=== PATIENT | female | born 1965 | race Caucasian/White ===

== ENCOUNTER → 2018-06-01 | Outpatient (CLI) | payer OTHER | LOC: BMCIMAGING 10:56 | PROVIDERS: ATTEND Podiatrist Foot & Ankle Surgery | DX: M19.071 Primary osteoarthritis, right ankle and foot (principal); M19.072 Primary osteoarthritis, left ankle and foot; M21.41 Flat foot [pes planus] (acquired), right foot; M21.42 Flat foot [pes planus] (acquired), left foot; Z87.798 Personal history of other (corrected) congenital malformations ==

== ENCOUNTER → 2018-06-04 | Outpatient (CLI) | payer OTHER | LOC: FIMAGING 11:21 | PROVIDERS: ATTEND Orthopaedic Surgery | DX: M17.11 Unilateral primary osteoarthritis, right knee (principal); S83.011A Lateral subluxation of right patella, initial encounter ==

== ENCOUNTER 2018-07-10 09:51 | Inpatient (IN) | payer OTHER ==
--- NOTE | 2018-07-10 06:39 | PDIAF ---
- Diagnosis Diagnosis: right knee djd Code Status: Full Code - Medication Management Discharge Medications: electronically signed and located in the Home Medication List. - Orders Services needed: Home Care, Physical Therapy Home Care Face to Face: I certify that this patient was under my care and that I had the required [id number] encounter meeting the encounter requirements on the discharge day. My findings support the fact that the patient is homebound as defined in Home Care Face to Face Continued: CMS Chapter 7 Medicare Benefits Manual 30.1.1 , The condition of the patient is such that there exists a normal inability to leave home and consequently, leaving home would require a considerable and taxing effort. Diet Recommendation: no restrictions on diet Diet Texture: Regular Texture Diet Additional Instructions: TOTAL JOINT ARTHROPLASTY DISCHARGE INSTRUCTIONS 1. Your surgeon follows the [facility] protocol for reducing your risk of DVT (blood clots) following surgery. Medication will be ordered to prevent blood clots. A sudden increase in calf pain and/or swelling could indicate a blood clot in your leg. If this occurs, please call your surgeon or his/her human resources benefits assistant. An ultrasound of the leg may be necessary to diagnose a blood clot. If you have conditions that make you a higher risk for blood clots, your surgeon may use more aggressive ways to prevent them. Notify your surgeon if you think you are a high risk for blood clots. 2. Wear your white surgical stockings (LESVIA hose) for 2 weeks. This decreases your swelling and may help prevent blood clots. It is ok to remove LESVIA hose at night time to give your legs a break. 3. Swelling and bruising in the surgical leg is common. If you feel that it is excessive, please notify your surgeon. 4. Elevate your surgical leg with the ankle above the hip several times every day. Please keep the leg straight when you elevate by putting pillows under your foot. Do not put pillows under your knee. This will make being able to fully straighten more difficult. This is uncomfortable, but try to do it as much as possible. 5. For total knee replacements use compressive wrap on your knee for 3-5 days after surgery, then you can discontinue it. 6. Use a walker or crutches for 1-2 weeks. Progress your weight-bearing as tolerated. You may start to use a cane when you feel stable and safe. 7. You will receive physical therapy instructions in the hospital. Continue those exercises at home. There are additional exercises in the total joint booklet you were given before surgery. Outpatient physical therapy will begin 7- 10 days after surgery. Please schedule this in advance. 8. Use ice on your knee at least 3-5 times every day for 30 minutes. This helps reduce pain and swelling. Also use it at night before falling asleep. 9. Leave your surgical dressing in place for 2 weeks. Your dressing is water resistant, but not waterproof. Cover it with Saran Wrap or Dbjqi-c-Unsd before showering. You may shower as soon as you feel safe entering a shower. If you notice bleeding from your incision 2 or 3 days after surgery, please notify your surgeon. 10. Due to narcotics, decreased activity and altered diet, most patients experience constipation after surgery. Use xzvb-vok-zeadbib stool softeners while you are on narcotics. 11. You may drive a car when you are comfortable bearing weight, have good muscular control of your leg and are off narcotics. This usually occurs 2-4 weeks after surgery, depending on which leg was operated on. 12. If there are questions not addressed here, please refer the [facility] book given for more information. If you still have questions, please contact your surgeon s office. 13. If you have a life-threatening emergency, please call 911 and go to the emergency room immediately. For non-life threatening emergencies, please call your physicians office for advice before going to the emergency room. - Follow Up Care Current Providers and Referrals: Geoffrey Martinez MD [Primary Care Provider] - Uriel Barrtet MD [Medical Doctor] -
--- NOTE | 2018-07-10 06:39 | PDHPUP ---
History & Physical Update H&P update statement: This history and physical update is based on an assessment of the patient which was completed after admission or registration (within 24 hours), but prior to the surgery/procedure. H&P update: no change in patient's condition since H&P completed
[~2018-07-10 09:51] MED LIST: ROPIVACAINE 0.2% 80 MG, EPINEPHrine 0.2 MG, KETOROLAC TROMETHAMINE 30 MG, morphINE 10 M... IU ONE; TRANEXAMIC ACID 1,000 MG in NS 100 ML IV ONE
[2018-07-10] MEDS ORDERED: ACETAMINOPHEN 325 MG TAB PO ONE (10:16)
[2018-07-10] MEDS ORDERED: FAMOTIDINE 20 MG TAB PO ONE (10:16)
[2018-07-10] MEDS ORDERED: ceFAZolin 2 GM/DEXTROSE 100 ML IV ONE (10:16)
[2018-07-10] MEDS ORDERED: LR 1,000 ML IV ONE (10:18)
[2018-07-10] MEDS ORDERED: ceFAZolin 1 GM/5 ML SYR ONE (10:49)
[2018-07-10] MEDS ORDERED: CALCIUM CHLORIDE 1 GM/10 ML INJ ONE (10:49)
[2018-07-10] MEDS ORDERED: THROMBIN (BOVINE) 5,000 UNIT VIAL TP ONE (10:49)
[2018-07-10] MEDS ORDERED: LIDOCAINE 1% 2 ML INJ ID PRN (11:04)
[2018-07-10] MEDS ORDERED: LIDOCAINE 1% 2 ML INJ ONE (11:06)
--- NOTE | 2018-07-10 11:17 | PDANEPAE ---
ANE History of Present Illness Knee OA ANE Past Medical History - Cardiovascular History Hx Hypertension: No Hx Arrhythmias: No Hx Chest Pain: No Hx Coronary Artery / Peripheral Vascular Disease: No Hx CHF / Valvular Disease: No Hx Palpitations: No - Pulmonary History Hx COPD: No Hx Asthma/Reactive Airway Disease: No Hx Recent Upper Respiratory Infection: No Hx Oxygen in Use at Home: No Hx Sleep Apnea: No Sleep Apnea Screening Result - Last Documented: Negative - Neurologic History Hx Cerebrovascular Accident: No Hx Seizures: No Hx Dementia: No - Endocrine History Hx Diabetes: No - Renal History Hx Renal Disorders: No - Liver History Hx Hepatic Disorders: No - Neurological & Psychiatric Hx Hx Neurological and Psychiatric Disorders: No - Cancer History Hx Cancer: No - Congenital Disorder History Hx Congenital Disorders: No - GI History Hx Gastrointestinal Disorders: Yes Gastrointestinal History Comment: hx of reflux- controlled currently. ulcer in 2016. constipation with anesthesia and narcotics - Other Health History Other Health History: wears glasses - Chronic Pain History Chronic Pain: Yes (right knee) - Surgical History Prior Surgeries: club feet repair as infant. tonsillectomy. x2. danni ANE Review of Systems Review of Systems: - Exercise capacity METS (RN): 3 METS ANE Patient History - Allergies Allergies/Adverse Reactions: topical benadryl Allergy (Uncoded 06/28/18 12:22) Hives - Home Medications Home medications: home medication list seen and reviewed Home Medications: Calcium Carbonate [Oyster Shell Calcium 500 mg (*)] 500 mg PO DAILY 06/26/18 [ Last Taken 07/10/18] Cetirizine [ZyrTEC 10 mg (*)] 10 mg PO DAILY PRN 06/26/18 [Last Taken 07/10/18] Cholecalciferol Vit D3 [Vitamin D3 (*)] 1,000 units PO DAILY 06/26/18 [Last Taken 07/10/18] Cyanocobalamin [Vitamin B12 (*)] 1,000 mcg PO DAILY 06/26/18 [Last Taken ] Herbals/Supplements -Info Only 1 ea PO DAILY 06/26/18 [Last Taken 07/10/18] Multivitamins [Multivitamin (*)] 1 each PO DAILY 06/26/18 [Last Taken 07/10/18] [place]-3 Fatty Acids [Fish Oil 1000 mg (*)] 1,000 mg PO DAILY 06/26/18 [Last Taken 07/10/18] - NPO status NPO Status: no food or drink >8 hours NPO Since - Liquids (Date): 07/10/18 NPO Since - Liquids (Time): 06:00 NPO Since - Solids (Date): 07/09/18 NPO Since - Solids (Time): 19:00 - Anes Hx Anes Hx: no prior problems (Prior spinal without diff) - Smoking Hx Smoking Status: Never smoked - Family Anes Hx Family Hx Anesthesia Complications: none ANE Labs/Vital Signs - Vital Signs Blood Pressure: 119/74 Heart Rate: 80 Respiratory Rate: 16 O2 Sat (%): 94 Height: 149.86 cm Weight: 97.522 kg ANE Physical Exam - Airway Neck exam: FROM Mallampati Score: Class 2 - Pulmonary Pulmonary: no respiratory distress - Cardiovascular Cardiovascular: regular rate and rhythym - ASA Status ASA Status: II ANE Anesthesia Plan Anesthesia Plan: spinal Regional Anesthesia: adductor canal FNB
[2018-07-10] MEDS ORDERED: MIDAZOLAM 2 MG/2 ML VIAL IVP ONE (11:22)
[2018-07-10] MEDS ORDERED: MIDAZOLAM 2 MG/2 ML VIAL ONE (11:23)
[2018-07-10] MEDS ORDERED: BUPIVACAINE/DEXTROSE 7.5MG/ML 2 ML SPINAL AMP SP ONE (11:35)
[2018-07-10] MEDS ORDERED: PROPOFOL/EMULSION 500 MG/50 ML BOTTLE IV ONE ×2 (11:36→12:29)
[2018-07-10] MEDS ORDERED: PHENYLEPHRINE HCL 100 MCG/ML SYR ONE (12:33)
[2018-07-10] MEDS ORDERED: NALOXONE HCL 0.4 MG/ML INJ IVP PRN (12:39)
[2018-07-10] MEDS ORDERED: ONDANSETRON 4 MG/2 ML VIAL IVP PRN ×2 (12:39→13:04)
[2018-07-10] MEDS ORDERED: ROPIVACAINE HCL 150 MG/30 ML INJ ONE (12:48)
[2018-07-10] MEDS ORDERED: PROMETHAZINE HCL 25 MG SUPPR PR PRN (13:04)
[2018-07-10] MEDS ORDERED: TEMAZEPAM 15 MG CAP PO PRN (13:04)
[2018-07-10] MEDS ORDERED: PROMETHAZINE HCL 25 MG/ML INJ IVP PRN (13:04)
[2018-07-10] MEDS ORDERED: LACTULOSE 20 GM/30 ML UDCUP PO PRN (13:04)
[2018-07-10] MEDS ORDERED: BISACODYL 10 MG SUPP PR PRN (13:04)
[2018-07-10] MEDS ORDERED: DIPHENOXYLATE/ATROPINE LOMOTIL 1 TAB PO PRN (13:04)
[2018-07-10] MEDS ORDERED: METOCLOPRAMIDE 10 MG/2 ML VIAL IVP PRN (13:04)
[2018-07-10] MEDS ORDERED: POLYETHYLENE GLYCOL 3350 17 GM PKT PO PRN (13:04)
[2018-07-10] MEDS ORDERED: CYCLOBENZAPRINE 10 MG TAB PO PRN (13:04)
[2018-07-10] MEDS ORDERED: diphenhydrAMINE 25 MG CAP PO PRN (13:04)
[2018-07-10] MEDS ORDERED: ONDANSETRON DISINTEGRATING 4 MG TAB PO PRN (13:04)
[2018-07-10] MEDS ORDERED: MAGNESIUM HYDROXIDE 30 ML UDCUP PO PRN (13:04)
--- NOTE | 2018-07-10 13:04 | POSTOPPROG ---
Post Op Note Date of Operation: 07/10/18 Surgeon: Uriel Barrett Kitchen Clerk: nikolas Anesthesiologist: amber Anesthesia: Spinal Pre-op Diagnosis: right tka Post-op Diagnosis: same Indication: same Procedure: right tka Inf/Abcess present in the surg proc area at time of surgery?: No Depth: Deep Incisional (Fascial) EBL: 100-500
[2018-07-10] MEDS ORDERED: LR 1,000 ML IV SCH (13:30)
--- NOTE | 2018-07-10 13:42 | POSTANESTH ---
Post Anesthetic Evaluation Cardiovascular Status: Similar to Pre-Op Cond Respiratory Status: Similar to Pre-op Cond. Level of Consciousness/Mental Status: Alert and Oriented Pain Control: Adequate, Prn Tx Ordered Nausea/Vomiting Control: Adequate, Prn Tx Ordered Complications Possibly Related to Anesthesia: None Noted (AC block in PACU. No complications.)
[2018-07-10] MEDS ORDERED: fentaNYL 100 MCG/2 ML INJ ONE ×2 (13:54→14:37)
[2018-07-10] MEDS: fentaNYL 100 MCG/2 ML INJ IVP PRN ×4 (13:55→14:47)
--- NOTE | 2018-07-10 13:59 | PDMN ---
Medical Necessity Medical necessity: Pt meets inpt criteria per MD order and [facility], Knee Arthroplasty, Total, A-2 days. 52 y/o w/R knee DJD underwent R TKA, comorbid obesity w/BMI 43.4. inpt pre-auth #[id number]
[2018-07-10] MEDS: ACETAMINOPHEN 325 MG TAB PO SCH (18:34)
[2018-07-10] MEDS: TRANEXAMIC ACID 650 MG TAB PO SCH (21:02)
[2018-07-10] MEDS: FAMOTIDINE 20 MG TAB PO SCH (21:02)
[2018-07-10] MEDS: ceFAZolin 2 GM/DEXTROSE 100 ML IV SCH (21:03)
[2018-07-10] MEDS: ASPIRIN 325 MG TAB PO SCH (21:03)
[2018-07-10] MEDS: SENNOSIDES/DOCUSATE SODIUM TAB PO SCH (21:03)
[2018-07-11] MEDS: ACETAMINOPHEN 325 MG TAB PO SCH ×2 (01:10→08:17)
[2018-07-11] MEDS: TRANEXAMIC ACID 650 MG TAB PO SCH (04:38)
[2018-07-11] MEDS: ceFAZolin 2 GM/DEXTROSE 100 ML IV SCH (04:39)
[2018-07-11 07:25] VITALS: BP 127/74
--- NOTE | 2018-07-11 07:25 | PDIAF ---
- Diagnosis Diagnosis: right knee djd Code Status: Full Code - Medication Management Discharge Medications: electronically signed and located in the Home Medication List. - Orders Services needed: Home Care, Physical Therapy Home Care Face to Face: I certify that this patient was under my care and that I had the required [id number] encounter meeting the encounter requirements on the discharge day. My findings support the fact that the patient is homebound as defined in Home Care Face to Face Continued: CMS Chapter 7 Medicare Benefits Manual 30.1.1 , The condition of the patient is such that there exists a normal inability to leave home and consequently, leaving home would require a considerable and taxing effort. Diet Recommendation: no restrictions on diet Diet Texture: Regular Texture Diet Additional Instructions: TOTAL JOINT ARTHROPLASTY DISCHARGE INSTRUCTIONS 1. Your surgeon follows the [facility] protocol for reducing your risk of DVT (blood clots) following surgery. Medication will be ordered to prevent blood clots. A sudden increase in calf pain and/or swelling could indicate a blood clot in your leg. If this occurs, please call your surgeon or his/her assistant media buyer. An ultrasound of the leg may be necessary to diagnose a blood clot. If you have conditions that make you a higher risk for blood clots, your surgeon may use more aggressive ways to prevent them. Notify your surgeon if you think you are a high risk for blood clots. 2. Wear your white surgical stockings (LESVIA hose) for 2 weeks. This decreases your swelling and may help prevent blood clots. It is ok to remove LESVIA hose at night time to give your legs a break. 3. Swelling and bruising in the surgical leg is common. If you feel that it is excessive, please notify your surgeon. 4. Elevate your surgical leg with the ankle above the hip several times every day. Please keep the leg straight when you elevate by putting pillows under your foot. Do not put pillows under your knee. This will make being able to fully straighten more difficult. This is uncomfortable, but try to do it as much as possible. 5. For total knee replacements use compressive wrap on your knee for 3-5 days after surgery, then you can discontinue it. 6. Use a walker or crutches for 1-2 weeks. Progress your weight-bearing as tolerated. You may start to use a cane when you feel stable and safe. 7. You will receive physical therapy instructions in the hospital. Continue those exercises at home. There are additional exercises in the total joint booklet you were given before surgery. Outpatient physical therapy will begin 7- 10 days after surgery. Please schedule this in advance. 8. Use ice on your knee at least 3-5 times every day for 30 minutes. This helps reduce pain and swelling. Also use it at night before falling asleep. 9. Leave your surgical dressing in place for 2 weeks. Your dressing is water resistant, but not waterproof. Cover it with Saran Wrap or Vralt-y-Zrzu before showering. You may shower as soon as you feel safe entering a shower. If you notice bleeding from your incision 2 or 3 days after surgery, please notify your surgeon. 10. Due to narcotics, decreased activity and altered diet, most patients experience constipation after surgery. Use mrnm-hyh-akbjnxt stool softeners while you are on narcotics. 11. You may drive a car when you are comfortable bearing weight, have good muscular control of your leg and are off narcotics. This usually occurs 2-4 weeks after surgery, depending on which leg was operated on. 12. If there are questions not addressed here, please refer the [facility] book given for more information. If you still have questions, please contact your surgeon s office. 13. If you have a life-threatening emergency, please call 911 and go to the emergency room immediately. For non-life threatening emergencies, please call your physicians office for advice before going to the emergency room. - Follow Up Care Current Providers and Referrals: Geoffrey Martinez MD [Primary Care Provider] - Uriel Barrett MD [Medical Doctor] -
--- NOTE | 2018-07-11 07:27 | SOAPPROG ---
SOAP Progress Note Assessment/Plan: Assessment: s/p right tka Plan: d/c home wbat rom as thong home pt with assortment planner dvt precautions reviewed f/u at two weeks seek attn for increasing pain, swelling or other focal complaint 07/11/18 07:25 Subjective: mild pain no cp or sob thong po Objective: Vital Signs Temp Pulse Resp BP Pulse Ox 37.5 C 85 18 127/74 H 93 07/11/18 07:24 07/11/18 07:24 07/11/18 07:24 07/11/18 07:24 07/11/18 07:24 Laboratory Results 07/11/18 04:37 07/10/18 07/11/18 07/12/18 05:59 05:59 05:59 Intake Total 2835 Output Total 2700 Balance 135 dressing intact intact pdf,ehl toes warm and pink neg homans rody xrays stable anatomic alignement no fx or lucency ICD10 Worksheet Patient Problems: Problems Problem Status Onset Arthritis of knee Acute - ICD10 Problem Qualifiers (1) Arthritis of knee
[2018-07-11] MEDS: SENNOSIDES/DOCUSATE SODIUM TAB PO SCH (08:17)
[2018-07-11] MEDS: ASPIRIN 325 MG TAB PO SCH (08:17)
[2018-07-11] MEDS: FAMOTIDINE 20 MG TAB PO SCH (08:17)
[2018-07-11] MEDS: oxyCODONE IR 5 MG TAB PO PRN ×3 (08:18→10:59)
--- NOTE | 2018-07-11 10:14 | GDS ---
[f rep st] DISCHARGE SUMMARY ADMIT DIAGNOSIS: Right knee degenerative joint disease. DISCHARGE DIAGNOSIS: Right knee degenerative joint disease. NAME OF PROCEDURE: Right total knee arthroplasty. HISTORY OF PRESENT ILLNESS: The patient is a 52-year-old woman who has end-stage arthritis to her [facility]. Clinical and radiographic features are consistent with this. She has failed all attempts at con servative management; therefore, recommended operative knee replacement. HOSPITAL COURSE: The patient was admitted to the hospital floor after uncomplicated total knee arthr oplasty. She tolerated the procedure well. She had no additional complications. At the time of dis charge, she is tolerating an oral diet, pain is well controlled on oral medicines, she is voiding wit hout difficulty. Dressing is clean, dry and intact. There is no swelling or calf tenderness. She h as intact plantar flexion, dorsiflexion, EHL function. X-rays demonstrated anatomic positioning with no fracture or lucency. DISCHARGE ACTIVITY: She is weightbearing as tolerated. Range of motion as tolerated. Keep the dres sing clean, dry and intact. Seek attention for increasing redness, swelling, drainage, or discharge. DISCHARGE MEDICATIONS: Oxycodone 5 mg 1 to 2 every 6 hours p.r.n. pain, cyclobenzaprine 10 mg p.o. q .8 hours p.r.n. spasm, Zofran 4 mg orally disintegrating tablet 1 every 8 hours p.r.n. nausea, aspiri n 325 mg p.o. daily. FOLLOWUP: Follow up in 2 weeks. Seek attention for increasing redness, swelling, drainage, or disch arge. /[id number]/MODL
--- NOTE | 2018-07-11 14:20 | ASMTLACE ---
LACE Length of stay for Answers: 2 days current admission Acuity / Level of Answers: Yes Care: Did the patient have an inpatient admission? Comorbidities - select Answers: Opioid dependence all that apply / Chronic pain # of Emergency department Answers: 0 visits in the last 6 months Score: 9 Date Signed: 07/11/2018 02:19 PM Electronically Signed By:PAPITO Acosta
--- NOTE | 2018-07-11 14:21 | ASMTCMCOM ---
CM Note CM Note Notes: Pt medically stable for d/c with [facility] PT, orders to be obtained via [facility]. Pt d/c address/phone verified. Date Signed: 07/11/2018 02:20 PM Electronically Signed By:PAPITO Acosta
--- NOTE | 2018-07-11 14:23 | ASDISCHSUM ---
Discharge Information Plan Status:Home with Home Health Medically Cleared to Leave: Discharge Date:07/11/2018 11:09 AM CM D/C Disposition: ADT D/C Disposition:Home Health Service Projected Discharge Date:07/11/2018 11:00 AM Transportation at D/C: Discharge Delay Reason: Follow-Up Date:07/11/2018 11:00 AM Discharge Slot: Final Diagnosis: Placement Information Referral Type:*Home Health Care Services Referral ID:[id number] Provider Name:[facility] Address 1:[address] Address 2: City:[place] Selection Factors: State:[place] Patient Contact Information Contact Name:TINY Relationship: Address:[address] [place] [address] Work Phone: [facility]:[place] Alternate Phone: State/Zip Code:[place] [address] Email: Financial Information Financial Class:HMO and PPO Plans Primary Plan Desc:JANZZ JESUS Primary Plan Number:[id number] Secondary Plan Desc: Secondary Plan Number: Assessment Information LACE LACE Length of stay for Answers: 2 days current admission Acuity / Level of Answers: Yes Care: Did the patient have an inpatient admission? Comorbidities - select Answers: Opioid dependence all that apply / Chronic pain # of Emergency department Answers: 0 visits in the last 6 months Score: 9 Date Signed: 07/11/2018 02:19 PM Electronically Signed By:PAPITO Acosta [facility] CM Progress Note CM Note CM Note Notes: Pt medically stable for d/c with [facility] PT, orders to be obtained via [email or web address]. Pt d/c address/phone verified. Date Signed: 07/11/2018 02:20 PM Electronically Signed By:PAPITO Acosta Intervention Information
== END 2018-07-11 11:09 | disposition home health service (06) | DRG 470 ==
LOC: F3N 09:51
PROVIDERS: ADMIT Orthopaedic Surgery; ATTEND Orthopaedic Surgery
PROC: 8E0Y0CZ Robotic Assisted Procedure of Lower Extremity, Open Approach (ICD-10-PCS; principal; 2018-07-10 11:45)
PROC: 0SRC0JA Replacement of Right Knee Joint with Synthetic Substitute, Uncemented, Open Approach (ICD-10-PCS; principal; 2018-07-10 11:45)
DX: M17.11 Unilateral primary osteoarthritis, right knee (principal); K21.9 Gastro-esophageal reflux disease without esophagitis; G89.29 Other chronic pain
CPT/HCPCS: 97110-GP; 97116-GP; 97161-GP; 97165-GO; J0171; J0690; J1885; J2250; J2270; J2370; J2405; J2704; J2795; J3010

== ENCOUNTER → 2018-08-23 | Outpatient (CLI) | payer OTHER | LOC: BMCIMAGING 08:04 | PROVIDERS: ATTEND Physician Assistant | DX: Z47.1 Aftercare following joint replacement surgery (principal); Z96.651 Presence of right artificial knee joint ==